=== PATIENT | female | born 2000 | race Caucasian/White ===

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

== ENCOUNTER → 2022-01-05 | Outpatient (CLI) | payer OTHER ==
[~2022-01-05] MED LIST: BENTYL 20MG TAB20 MG PO; DEPO-PROVE150 MG/11 IM; HYDROCODON-ACET15 ML PO; MIRALAX17 GM PO; SPRINTEC 28 DA1 EACH PO; VENTOLIN HFA 66.7 GM INH
== END ==
LOC: US 13:30
DX: N60.02 Solitary cyst of left breast (principal); L72.3 Sebaceous cyst
CPT/HCPCS: 76642-LT

== ENCOUNTER 2022-03-19 12:44 | Emergency (ER) | payer OTHER ==
[2022-03-19 13:58] LABS: HEMOGLOBIN 13.1 gm/dl (12.3-15.3); RED BLOOD COUNT 4.48 M/UL (4.00-5.10); WHITE BLOOD COUNT 4.6 K/UL (4.5-11.0)
[2022-03-19 14:27] LABS: BUN/CREATININE RATIO 17 (0-10)
[2022-03-21 21:08] LABS: CHLAMYDIA TRACHOMATIS, NAA Negative (Negative); NEISSERIA GONORRHOEAE, NAA Negative (Negative)
== END 2022-03-19 16:00 | disposition home or self-care (01) ==
LOC: ER1 12:44
PROVIDERS: Physician Assistant
DX: N94.6 Dysmenorrhea, unspecified (principal)
CPT/HCPCS: 80053; 81001; 84703; 85025; 87077; 87086; 87186; 99284

== ENCOUNTER 2022-06-01 09:48 | Emergency (ER) | payer OTHER | END 2022-06-01 14:20 | disposition home or self-care (01) | LOC: ER1 09:48 | DX: R51.9 Headache, unspecified (principal); Z20.822 Contact with and (suspected) exposure to COVID-19 | CPT/HCPCS: 0240U; 84703; 96361; 96374; 96375; 99284; J1885; J2765 ==